=== PATIENT | female | born 1945 | race American Indian/Alaskan Native ===

== ENCOUNTER 2016-12-18 13:08 | Outpatient (CLI) | payer MEDICARE ==
[2016-12-18] MEDS ORDERED: XYLOCAINE 1% 20 mL ONE (13:32)
--- NOTE | 2016-12-18 14:41 | Mammography Report ---
Unilateral right mammogram for clip placement status post stereotactic biopsy. Findings: 2 views of the right breast confirm a single new biopsy clip at the site of stereotactic sampling. Several additional surgical clips are seen in the right breast at the 12:00 position. Impression: Concordant placement of biopsy clip.
--- NOTE | 2016-12-22 08:46 | Mammography Report ---
STEREOTACTIC BIOPSY OF THE RIGHT BREAST: HISTORY: Indeterminate microcalcifications. PROCEDURE: The patient's prior mammogram was reviewed. The patient was placed in the prone position. Stereotactic pair images were obtained and the calcifications were localized. Pre- and post-fire images were performed. Local anesthetic was injected into the skin. An 8-gauge vacuum assisted biopsy device was used to obtain 6 cores of tissue. A specimen radiograph confirmed numerous [employer] microcalcifications in several of the cores. A single biopsy clip was placed at the site. Hemostasis was accomplished by direct compression. The patient tolerated the procedure well clinically and was discharged in satisfactory condition.
== END 2016-12-18 13:09 | disposition home or self-care (01) ==
LOC: MAMMO 13:08
PROVIDERS: ATTEND Internal Medicine
DX: R92.0 Mammographic microcalcification found on diagnostic imaging of breast (principal); R92.2 Inconclusive mammogram
CPT/HCPCS: 19081; 88305; A4648; G0206